=== PATIENT | female | born 1960 | race Hispanic/Latino ===

== ENCOUNTER → 2025-02-15 | Day surgery (SDC) | payer MEDICARE ==
[~2025-02-15] MED LIST: CALCIUM ACETAT667 MG PO; FENTANYL CITRATE/PF 100MCG/2 ML INJ ONE; FISH OIL 1,001000 M1 PO; HYOSCYAMINE SULFATE 0.5 MG/ML INJ ONE; LIDOCAINE HCL 2% LOCAL INJ 5 ML SDV VIAL INJ ONE; METOCLOPRAMIDE HCL 10 MG/2ML VIAL ONE; MICARDIS40 MG PO; PANTOPRAZOLE SO40 MG PO; PHENYLEPHRINE HCL 1% 10 MG/ML VIAL ONE; PROPOFOL IV EMULSION 10 MG/ML 20 ML VIAL ONE; PROPOFOL IV EMULSION 50 ML IV ONE
[2025-02-15 12:13] LABS: BASOPHILS % 0.3 % (0.0-1.0); EOSINOPHILS % 0.1 % (0.0-6.0); LYMPHOCYTES % 9.9 % (18.0-39.1); MONOCYTES % 7.3 % (4.4-11.3); NEUTROPHILS % 82.1 % (38.7-80.0); RED CELL DISTRIBUTION WIDTH 12.2 % (11.7-14.4)
[2025-02-15 14:57] VITALS: TEMP 97.5
[2025-02-15 15:10] VITALS: BP 108/65; PULSE 79; RESP 15; O2SAT 96
== END | disposition home or self-care (01) ==
LOC: OR 11:09
PROVIDERS: ATTEND Internal Medicine Gastroenterology
DX: K63.5 Polyp of colon (principal); K31.7 Polyp of stomach and duodenum; K29.70 Gastritis, unspecified, without bleeding; K20.90 Esophagitis, unspecified without bleeding; K31.89 Other diseases of stomach and duodenum; K21.9 Gastro-esophageal reflux disease without esophagitis; K28.9 Gastrojejunal ulcer, unspecified as acute or chronic, without hemorrhage or perforation; K59.09 Other constipation; K57.30 Diverticulosis of large intestine without perforation or abscess without bleeding; K64.8 Other hemorrhoids; I10 Essential (primary) hypertension; Z71.89 Other specified counseling; R01.1 Cardiac murmur, unspecified; Z79.899 Other long term (current) drug therapy; Z68.27 Body mass index [BMI] 27.0-27.9, adult; Z71.3 Dietary counseling and surveillance; Z91.81 History of falling
CPT/HCPCS: 36415; 43239; 45385; 85025; 93005; J1980; J2003; J2371; J2470; J2704 ×2; J2765; J3010; 45378